=== PATIENT | female | born 1945 | race African-American/Black ===

== ENCOUNTER 2018-10-10 21:08 | Emergency (ER) | payer MEDICARE, MEDICAID ==
[2018-10-10] MEDS ORDERED: Lidocaine 1% 20 ML MDV ONE (21:24)
== END 2018-10-10 21:50 | disposition home or self-care (01) ==
LOC: MADERS 21:08
DX: S90.852A Superficial foreign body, left foot, initial encounter (principal); W25.XXXA Contact with sharp glass, initial encounter
CPT/HCPCS: 99283; J2001